=== PATIENT | female | born 1990 ===

== ENCOUNTER 2018-02-17 00:19 | Emergency (ER) | payer MEDICAID ==
[2018-02-17] MEDS ORDERED: Bacitracin 500 Units/gm Oint Foilpak UD TOP ONE (01:15)
--- NOTE | 2018-02-17 01:23 | C.PDOC ---
History Of Present Illness 27 y/o female presents to the ED c/o bumps and itching to her right hand that began this morning. She notes that she was cleaning yesterday and killed some ants. Denies any new food, medications, or known allergens. No difficulty breathing, swallowing, tongue/lip swelling. She took childrens Jovita this morning without relief. (Neva Maldonado) History Per: Patient History/Exam Limitations: no limitations Onset/Duration Of Symptoms: Days (x1) Current Symptoms Are (Timing): Still Present Quality Of Symptoms: Itching Time Seen by Provider: 02/17/18 00:46 Chief Complaint (Nursing): Abnormal Skin Integrity Past Medical History Reviewed: Historical Data, Nursing Documentation, Vital Signs Surgical History: No Surg Hx Denies: Pacemaker Family History: States: Unknown Family Hx - Social History Hx Tobacco Use: No Hx Alcohol Use: Yes (SCOIAL) Hx Substance Use: No - Immunization History Hx Tetanus Toxoid Vaccination: No Hx Influenza Vaccination: No Hx Pneumococcal Vaccination: No Vital Signs: Last Vital Signs Temp 98.1 F 02/17/18 01:31 Pulse 81 02/17/18 01:31 Resp 16 02/17/18 01:31 BP 138/84 02/17/18 01:31 Pulse Ox 100 02/17/18 03:46 Review Of Systems Except As Marked, All Systems Reviewed And Found Negative. ENT: Negative for: Mouth Swelling, Throat Swelling Respiratory: Negative for: Shortness of Breath Skin: Positive for: Rash (itchy bumps to hand) Physical Exam - Physical Exam Appears: Well, Non-toxic, No Acute Distress Skin: Warm, Dry, Other (Multiple areas of swelling and erythema with central bite-like lesion to her right hand /forearm as well as right forehead and left lower back; Some excoriations noted) Head: Atraumatic, Normacephalic Eye(s): bilateral: Normal Inspection, EOMI Tongue: Normal Appearing, No Swelling Throat: Normal (with patent airway), No Erythema Neck: Normal ROM, Supple Chest: Symmetrical Respiratory: No Accessory Muscle Use Extremity: Bilateral: Atraumatic, Normal ROM Neurological/Psych: Oriented x3, Normal Speech, No Other (focal deficits) ED Course And Treatment O2 Sat by Pulse Oximetry: 100 (RA) Pulse Ox Interpretation: Normal Progress Note: Patient given prednisone and benadryl. Bacitracin applied to affected areas. On reevaluation patient remains alert, awake, in no acute distress. Lungs are clear on reexamination. Patient reports improvement in symptoms. Will discharge home with prednisone, benadryl, hydrocortisone cream, and bactroban. Patient advised to follow up with primary doctor in 1-2 days. Reassessment Condition: Improved Disposition Counseled Patient/Family Regarding: Diagnosis, Need For Followup, Rx Given - Disposition Disposition Time: 01:15 - POA Present On Arrival: None - Disposition Disposition: HOME/ ROUTINE Condition: STABLE Additional Instructions: Follow up with your PMD in 1-2 days. Return to ER if symptoms persist or worsen. Prescriptions: DiphenhydrAMINE [Benadryl] 25 mg PO Q6 #20 cap Hydrocortisone 1% Cream [Cortizone 1% Cream] 1 appl TP TID #1 tube Mupirocin 2% Ointment [Bactroban Ointment] 1 appl TP TID #1 tube predniSONE [Prednisone] 40 mg PO DAILY #8 tab Instructions: Insect Bites and Stings (DC) Forms: [employer] ([place]) - Clinical Impression Clinical Impression: Bug bite, Allergic reaction - PA / TITLE AGENT / Resident Statement MD/DO has reviewed & agrees with the documentation as recorded. - Scribe Statement The provider has reviewed the documentation as recorded by the Scribe (Lashanda Carvalho) - Scribe Statement All medical record entries made by the Scribe were at my direction and personally dictated by me. I have reviewed the chart and agree that the record accurately reflects my personal performance of the history, physical exam, medical decision making, and the department course for this patient. I have also personally directed, reviewed, and agree with the discharge instructions and disposition. (Neva Maldonado)
[2018-02-17 01:32] VITALS: BP 138/84; PULSE 81; RESP 16; TEMP 98.1
[2018-02-17 03:36] VITALS: O2SAT 100
== END 2018-02-17 01:32 | disposition home or self-care (01) ==
LOC: C.ER 00:19
DX: S60.561A Insect bite (nonvenomous) of right hand, initial encounter (principal); S00.86XA Insect bite (nonvenomous) of other part of head, initial encounter; S30.860A Insect bite (nonvenomous) of lower back and pelvis, initial encounter; W57.XXXA Bitten or stung by nonvenomous insect and other nonvenomous arthropods, initial encounter; T78.49XA Other allergy, initial encounter; Y93.E5 Activity, floor mopping and cleaning; Y92.89 Other specified places as the place of occurrence of the external cause